=== PATIENT | female | born 1965 | race African-American/Black ===

== ENCOUNTER 2019-10-03 08:52 | Inpatient (IN) ==
[2019-10-03 10:57] LABS: Basophils # 0.1 10*3/uL (0.0-0.2); Basophils % 0.5 % (0.0-0.8); Eosinophils # 0.1 10*3/uL (0.0-0.87); Eosinophils % 0.9 % (0.00-10.9); Hematocrit 44.4 VOL% (35.7-47.0); Hemoglobin 14.5 GM/DL (12.0-16.0); Immature Granulocytes % 0.4 %; Immature Granulocytes Absolute 0.04 #; Lymphocytes # 1.3 10*3/uL (1.4-4.0); Lymphocytes % 14.1 % (21.3-54.2); Mean Corpuscular HGB Conc 32.7 GM/DL (32-36); Mean Corpuscular Volume 87.1 FL (87-102); Mean Platelet Volume 9.6 FL (9.6-12.0); Neutrophils % 76.1 % (38.7-73.9); Platelet Count 263 T/CUMM (130-400); Red Cell Distribution Width 12.7 % (9.3-17.3); White Blood Count 9.4 T/CUMM (4-12)
[2019-10-03 11:10] LABS: Apearance,Urine CLOUDY (Clear); Bacteria,Urine Few /HPF (Few); Bilirubin,Urine Negative (Negative); Blood, Urine Negative (Negative); Glucose,Urine (UA) Negative (Negative); Ketones,Urine Negative (Negative); Mucus,Urine Occasional /LPF (Occasional); Nitrite,Urine Negative (Negative); Protein,Urine Negative; Squamous Epithelial Cell,Urine Many /HPF (0-10); Urine Color Yellow (Yellow); Urine Specific Gravity 1.008 (1.001-1.035); Urine Urobilinogen < 2.0 EU/DL (0.2-1.0); WBC,Urine 5 /HPF (0-6)
[2019-10-03 11:22] LABS: Albumin 3.9 G/DL (3.4-5.0); Bilirubin,Total 0.4 MG/DL (0.2-1.0); Osmolality,Calculated 273.7 MOS/KG (273-304); Total Protein 7.5 G/DL (6.4-8.3)
[2019-10-03] MEDS ORDERED: ACETAMINOPHEN 325 MG TABLET PO PRN (14:28)
[2019-10-03] MEDS ORDERED: KETOROLAC 15 MG/1 ML VIAL IV PRN (14:28)
[2019-10-03] MEDS ORDERED: ONDANSETRON 4 MG/2 ML VIAL IV PRN (14:28)
[2019-10-03] MEDS ORDERED: HYDROmorphone 2 MG/1 ML VIAL IV PRN (14:28)
[2019-10-03] MEDS ORDERED: BISACODYL 5 MG TABLET PO PRN (14:28)
[2019-10-03] MEDS: PIPERACILLIN/TAZOBACTAM 3,375 MG in SODIUM CHLORIDE 0.9% 100 ML IV SCH ×2 (16:24→23:20)
[2019-10-03] MEDS: LACTATED RINGERS 1,000 ML IV SCH ×2 (16:24→23:58)
[2019-10-03] MEDS ORDERED: SCOPOLAMINE 1.5 MG PATCH TRANSDERM ONE (19:08)
[2019-10-03] MEDS: GABAPENTIN 100 MG CAPSULE PO SCH (21:01)
[2019-10-04] MEDS ORDERED: TISSUE ADHESIVE 1 EACH APPLICATOR TOP ONE (07:21)
[2019-10-04] MEDS ORDERED: LIDOCAINE 1%/EPI INJ 20 ML VIAL ONE (07:21)
[2019-10-04] MEDS ORDERED: BUPIVACAINE MPF 0.25% 30 ML VIAL ONE (07:21)
[2019-10-04] MEDS ORDERED: ALPRAZolam 0.5 MG TABLET PO PRN (09:04)
[2019-10-04] MEDS ORDERED: MEPERIDINE 25 MG/1 ML VIAL IV PRN (09:21)
[2019-10-04] MEDS ORDERED: PROMETHAZINE INJ 25 MG in SODIUM CHLORIDE 0.9% 50 ML IV PRN (09:21)
[2019-10-04] MEDS ORDERED: diphenhydrAMINE 50 MG/1 ML VIAL IV PRN (09:21)
[2019-10-04] MEDS ORDERED: ONDANSETRON 4 MG/2 ML VIAL IV PRN (09:21)
[2019-10-04] MEDS: LACTATED RINGERS 1,000 ML IV SCH ×3 (09:24→19:51)
[2019-10-04] MEDS ORDERED: propofoL 200 MG/20 ML VIAL IV ONE (09:25)
[2019-10-04] MEDS ORDERED: LIDOCAINE 2% 5 ML VIAL ONE (09:25)
[2019-10-04] MEDS ORDERED: SEVOFLURANE 1 UNIT/15 MINUTE INH ONE (09:25)
[2019-10-04] MEDS ORDERED: DEXAMETHASONE 4 MG/1 ML VIAL ONE (09:26)
[2019-10-04] MEDS ORDERED: ACETAMINOPHEN 1,000 MG/100 ML VIAL IV ONE (09:26)
[2019-10-04] MEDS ORDERED: KETOROLAC 30 MG/1 ML VIAL ONE (09:26)
[2019-10-04] MEDS ORDERED: ONDANSETRON 4 MG/2 ML VIAL ONE ×2 (09:26→09:27)
[2019-10-04] MEDS ORDERED: MIDAZOLAM 2 MG/2 ML VIAL ONE (09:26)
[2019-10-04] MEDS ORDERED: fentaNYL 100 MCG/2 ML VIAL ONE (09:26)
[2019-10-04] MEDS ORDERED: GLYCOPYRROLATE 0.4 MG/2 ML VIAL ONE (09:26)
[2019-10-04] MEDS ORDERED: ROCURONIUM 100 MG/10 ML VIAL IV ONE (09:27)
[2019-10-04] MEDS ORDERED: NEOSTIGMINE 10 MG/10 ML VIAL ONE (09:27)
[2019-10-04] MEDS ORDERED: PHENYLEPHRINE 1 MG/10 ML SYRINGE IV ONE (09:27)
[2019-10-04] MEDS ORDERED: MEPERIDINE 25 MG/1 ML VIAL ONE (09:27)
[2019-10-04] MEDS ORDERED: LACTATED RINGERS 1,000 ML IV ONE (09:27)
[2019-10-04] MEDS: PIPERACILLIN/TAZOBACTAM 3,375 MG in SODIUM CHLORIDE 0.9% 100 ML IV SCH ×3 (10:58→23:02)
[2019-10-04] MEDS: ATORVASTATIN 40 MG TABLET PO SCH (11:06)
[2019-10-04] MEDS: CETIRIZINE 10 MG TABLET PO SCH (11:06)
[2019-10-04] MEDS: PANTOPRAZOLE 40 MG TABLET PO SCH (11:06)
[2019-10-04] MEDS: GABAPENTIN 100 MG CAPSULE PO SCH (20:05)
[2019-10-05] MEDS: LACTATED RINGERS 1,000 ML IV SCH (06:21)
[2019-10-05] MEDS: PIPERACILLIN/TAZOBACTAM 3,375 MG in SODIUM CHLORIDE 0.9% 100 ML IV SCH (07:10)
[2019-10-05 08:33] VITALS: BP 112/78
[2019-10-05] MEDS: ATORVASTATIN 40 MG TABLET PO SCH (09:12)
[2019-10-05] MEDS: CETIRIZINE 10 MG TABLET PO SCH ×2 (09:12→09:13)
[2019-10-05] MEDS: PANTOPRAZOLE 40 MG TABLET PO SCH (09:12)
== END 2019-10-05 12:15 | disposition home or self-care (01) | DRG 419 ==
LOC: N.ED 08:52 → N.3E 14:28
PROVIDERS: ADMIT Surgery; ATTEND Surgery
PROC: LAPCHOL (2019-10-04 08:04)